=== PATIENT | male | born 1945 | race Hispanic/Latino ===

== ENCOUNTER 2017-12-06 08:13 | Emergency (ER) | payer MEDICARE, OTHER ==
[2017-12-06 08:18] VITALS: TEMP 98.3
[2017-12-06 08:28] VITALS: O2SAT 98
[2017-12-06] MEDS ORDERED: Albuterol-Ipratrop 3 mg / 0.5 (3 ml) UD INH STA ×2 (08:28→09:28)
[2017-12-06 08:46] LABS: BASO % 0.3 % (0.0-2.0); EOS # 0.3 K/uL (0.0-0.7); EOS % 2.9 % (0.0-4.0); HEMOGLOBIN 13.1 g/dL (12.0-18.0); LYMPH # 1.2 K/uL (1.0-4.3); LYMPH % 12.7 % (20.0-40.0); MEAN CELL VOLUME 90.1 fl (80.0-94.0); MEAN CORPUSCULAR HEMOGLOBIN 30.5 pg (27.0-31.0); MEAN CORPUSCULAR HGB CONC 33.9 g/dL (33.0-37.0); MEAN PLATELET VOLUME 7.2 fl (7.2-11.7); MONO # 0.8 K/uL (0.0-0.8); MONO % 8.8 % (0.0-10.0); NEUT # 6.9 K/uL (1.8-7.0); NEUT % 75.3 % (50.0-75.0); RBC 4.29 Mil/uL (4.40-5.90); RED CELL DISTRIBUTION WIDTH 12.7 % (11.5-14.5); WHITE BLOOD COUNT 9.2 K/uL (4.8-10.8)
[2017-12-06 09:16] LABS: ALB/GLOB RATIO 1.1 (1.0-2.1); ALBUMIN 3.6 g/dL (3.5-5.0); ALT/SGPT 37 U/L (21-72); AST/SGOT 27 U/L (17-59); B-TYPE NATRIURETIC PEPTIDE 211 pg/ml (0-900); BLOOD UREA NITROGEN 14 mg/dl (9-20); CALCIUM 8.9 mg/dL (8.4-10.2); GFR AFRICAN-AMERICAN > 60; GFR NON-AFRICAN AMERICAN > 60
--- NOTE | 2017-12-06 09:26 | RAD ---
HISTORY: chest pain/ r/o infiltrate COMPARISON: No prior. TECHNIQUE: Chest PA and lateral FINDINGS: LUNGS: Small right apical nodular densities. No active pulmonary disease. PLEURA: No significant pleural effusion identified. No pneumothorax apparent. CARDIOVASCULAR: Atherosclerotic aortic calcifications. Cardiomediastinal silhouette the upper limits of normal in size. OSSEOUS STRUCTURES: Under changes. VISUALIZED UPPER ABDOMEN: Normal. OTHER FINDINGS: None. IMPRESSION: No focal consolidation or pleural effusion Small right apical nodular densities for which nonemergent CT scan can be obtained for further evaluation as clinically warranted. ER notification submitted electronically.
[2017-12-06 09:28] LABS: PARTIAL THROMBOPLASTIN TIME 25.8 Seconds (25.6-37.1); PROTHROMBIN TIME 11.6 Seconds (9.8-13.1)
[2017-12-06] MEDS ORDERED: Albuterol-Ipratrop 3 mg / 0.5 (3 ml) UD ONE (10:02)
--- NOTE | 2017-12-06 11:23 | CT ---
PROCEDURE: CT Chest without contrast HISTORY: COUGH, ABNORMAL CXR COMPARISON: None. TECHNIQUE: Contiguous axial images were obtained through the chest without intravenous contrast enhancement. Sagittal and coronal reconstructions were performed. Radiation dose (DLP): mGy-cm. This CT exam was performed using one or more of the following dose reduction techniques: Automated exposure control, adjustment of the mA and/or kV according to patient size, and/or use of iterative reconstruction technique. FINDINGS: LUNGS: 4-5 mm right apical nodule. Right subpleural calcified granulomas. 5 mm left lower lobe calcified granuloma. Left lower lobe nodular consolidation. Visualized airway clear. MEDIASTINUM: Unremarkable thoracic aorta. No aneurysm. Normal sized heart. Main pulmonary artery unremarkable. No vascular congestion. Sub carinal lymph node measuring 2.2 x 1.1 cm. PLEURA: No pleural fluid. No pneumothorax. BONES: No fracture. Degenerative changes. No destructive lesion. UPPER ABDOMEN: Prior cholecystectomy. Exophytic right upper pole renal cyst. OTHER FINDINGS: None. IMPRESSION: 5 mm right apical nodule. Left lower lobe area of nodular consolidation. Subcarinal lymph node measuring 2.2 x 1.1 cm. Follow-up is advised.
[2017-12-06] MEDS ORDERED: levoFLOXacin 750 mg in D5W 150 ML BAG IVPB STA (11:26)
[2017-12-06] MEDS ORDERED: levoFLOXacin 750 mg in D5W 750 MG/150 ML BAG IVPB ONE ×2 (11:30→11:51)
[2017-12-06 12:29] LABS: SQUAMOUS EPITHIAL < 1 /hpf (0-5); URINE BILIRUBIN NEGATIVE (NEGATIVE); URINE BLOOD NEGATIVE (NEGATIVE); URINE CLARITY SLIGHTY-CLOUDY (Clear); URINE COLOR YELLOW (YELLOW); URINE GLUCOSE (UA) NEG (Normal); URINE LEUKOCYTE ESTERASE NEG Leu/uL (Negative); URINE PROTEIN NEGATIVE (NEGATIVE)
--- NOTE | 2017-12-06 12:33 | ED PDOC ---
HPI: SOB/CHF/COPD Chief Complaint (Provider): cough, shortness of breath History Per: Patient, Family (daughter) History/Exam Limitations: no limitations Onset/Duration Of Symptoms: Days (2 weeks progressive) Current Symptoms Are (Timing): Still Present Initiating Event: Upper Respiratory Illness Quality: Tightness Exacerbating Factor(s): Exertion Current Respiratory Medications: None Severity: Moderate Associated Symptoms: Chest Pain (when coughs), Productive Cough. denies: Leg/ Calf Pain, Dizziness, Anxiety, Tingling In Hands Or Face <Albert Rodriguez III - Last Filed: 12/06/17 12:30> <Francisca Ochoa - Last Filed: 12/06/17 13:24> Time Seen by Provider: 12/06/17 08:20 Chief Complaint (Nursing): Shortness Of Breath Additional Complaint(s): 72yo male presents w daughter for cough, mild SOB and malaise ongoing and worsening over 2 weeks. Thinks may have caught something from family member, kids at home sick w URI recently. Has a ? hx of chronic lung disease but no formal diagnosis. Gets care in [place] [facility] No prior cardiac history. Denies fever, orthopnea, edema or syncope. (Albert Rodriguez III) Past Medical History Reviewed: Historical Data, Nursing Documentation, Vital Signs - Medical History PMH: Anxiety, HTN, Hypercholesterolemia - Surgical History Surgical History: Cholecystectomy Other surgeries: lower extremity orthopedic procedures - Social History Current smoker - smoking cessation education provided: No (quit 40+ yrs ago) Alcohol: None <Albert Rodriguez III - Last Filed: 12/06/17 12:30> - Family History Family History: States: No Known Family Hx, Unknown Family Hx <Francisca Ochoa - Last Filed: 12/06/17 13:24> Vital Signs: Last Vital Signs Temp 98.3 F 12/06/17 08:24 Pulse 79 12/06/17 12:38 Resp 20 12/06/17 08:24 BP 154/79 H 12/06/17 08:24 Pulse Ox 98 12/06/17 12:38 - Home Medications Home Medications: Ambulatory Orders Medication Instructions Recorded Albuterol 0.083% [Albuterol 0.083% 2.5 mg IH Q4 PRN #20 neb 12/06/17 Inhal Nichelle (2.5 mg/3 ml) UD] Albuterol HFA [Ventolin HFA 90 1 - 2 puff IH Q4 PRN #1 inhaler 12/06/17 mcg/actuation (8 g)] Levofloxacin [Levaquin] 750 mg PO DAILY #7 tablet 12/06/17 Nebulizer Accessories [Airs Adult 1 each MC PRN PRN #1 each 12/06/17 Aerosol Mask] Nebulizer and Compressor [Easy Air 1 each MC Q4 PRN #1 each 12/06/17 Compressor Nebulizer] Prednisone 50 mg PO DAILY #4 tab 12/06/17 - Allergies Allergies/Adverse Reactions: Allergies Allergy/AdvReac Type Severity Reaction Status Date / Time No Known Allergies Allergy Verified 12/06/17 08:24 Review of Systems ROS Statement: Except As Marked, All Systems Reviewed And Found Negative Constitutional: Positive for: Weakness, Malaise Cardiovascular: Positive for: Chest Pain (when coughs) Respiratory: Positive for: Cough, Shortness of Breath, Pleuritic Pain, Sputum, Wheezing Gastrointestinal: Negative for: Abdominal Pain Genitourinary Male: Negative for: Dysuria Musculoskeletal: Negative for: Neck Pain Skin: Negative for: Rash, Lesions Neurological: Negative for: Weakness, Numbness <Albert Rodriguez III - Last Filed: 12/06/17 12:30> Physical Exam - Reviewed Nursing Documentation Reviewed: Yes Vital Signs Reviewed: Yes - Physical Exam Appears: Positive for: Well (speaks full sentences), Non-toxic, No Acute Distress Head Exam: Positive for: ATRAUMATIC, NORMAL INSPECTION, NORMOCEPHALIC Skin: Positive for: Normal Color, Warm, DRY Eye Exam: Positive for: EOMI, Normal appearance, PERRL ENT: Positive for: Normal ENT Inspection Neck: Positive for: Normal, Painless ROM Cardiovascular/Chest: Positive for: Regular Rate, Rhythm Respiratory: Positive for: Normal Breath Sounds, Wheezing (b/l w/ cough). Negative for: Accessory Muscle Use, Crackles, Respiratory Distress Gastrointestinal/Abdominal: Positive for: Soft. Negative for: Tenderness, Guarding Back: Positive for: Normal Inspection Extremity: Positive for: Normal ROM. Negative for: Swelling Neurologic/Psych: Positive for: Alert, Oriented, Gait (stable to bathroom). Negative for: Motor/Sensory Deficits <Albert Rodriguez III - Last Filed: 12/06/17 12:30> - Laboratory Results Result Diagrams: 12/06/17 08:35 12/06/17 08:35 - ECG ECG: Positive for: Interpreted By Me ECG Rhythm: Positive for: Normal ST Segment, Sinus Rhythm Rate: 79 O2 Sat by Pulse Oximetry: 98 Pulse Ox Interpretation: Normal - Radiology X-Ray: Read By Radiologist X-Ray Interpretation: Other (R apical nodule, Increased markings b/l on my read ) <Albert Rodriguez III - Last Filed: 12/06/17 12:30> - Laboratory Results Result Diagrams: 12/06/17 08:35 12/06/17 08:35 <Francisca Ochoa - Last Filed: 12/06/17 13:24> Medical Decision Making <Albert Rodriguez III - Last Filed: 12/06/17 12:30> <Francisca Ochoa - Last Filed: 12/06/17 13:24> Medical Decision Making: workup for cough w wheeze in setting of intermittent chronic cough (last had episode similar in september) States had CT chest about 2 yrs ago and PFTs prior to that. Has used inhaler in past. No hemoptysis. labs reviewed and unremarkable Given CXR and clinical findings, CT chest ordered r/o mass or pneumonia not evident on CXR Accession No. : [id number] Patient Name / ID : REMBERTO BLANCHARD / [id number] Exam Date : 12/06/2017 10:58:31 ( Approved ) Study Comment : Sex / Age : M / 72Y Creator : Devon Webb MD Dictator : Devon Webb MD [employer] Sigma Black Belt Engineer : Benefits Sales Consultant : Devon Webb MD Approver2 : Report Date : 12/06/2017 11:21:08 My Comment : PROCEDURE: CT Chest without contrast HISTORY: COUGH, ABNORMAL CXR COMPARISON: None. TECHNIQUE: Contiguous axial images were obtained through the chest without intravenous contrast enhancement. Sagittal and coronal reconstructions were performed. Radiation dose (DLP): mGy-cm. This CT exam was performed using one or more of the following dose reduction techniques: Automated exposure control, adjustment of the mA and/or kV according to patient size, and/or use of iterative reconstruction technique. FINDINGS: LUNGS: 4-5 mm right apical nodule. Right subpleural calcified granulomas. 5 mm left lower lobe calcified granuloma. Left lower lobe nodular consolidation. Visualized airway clear. MEDIASTINUM: Unremarkable thoracic aorta. No aneurysm. Normal sized heart. Main pulmonary artery unremarkable. No vascular congestion. Sub carinal lymph node measuring 2.2 x 1.1 cm. PLEURA: No pleural fluid. No pneumothorax. BONES: No fracture. Degenerative changes. No destructive lesion. UPPER ABDOMEN: Prior cholecystectomy. Exophytic right upper pole renal cyst. OTHER FINDINGS: None. IMPRESSION: 5 mm right apical nodule. Left lower lobe area of nodular consolidation. Subcarinal lymph node measuring 2.2 x 1.1 cm. Follow-up is advised. Levaquin initiated Daughter requested pulm Dr Lr, case discussed and will see in office early this week Rx prednisone and albuterol, Rx transmitted Recommendations for followup stressed and possible need for outpt testing r/o malignancy and assure resolution of pneumonia (Albert Rodriguez III) CXR report placed in PA review folder - FINDINGS: LUNGS: Small right apical nodular densities. No active pulmonary disease. PLEURA: No significant pleural effusion identified. No pneumothorax apparent. CARDIOVASCULAR: Atherosclerotic aortic calcifications. Cardiomediastinal silhouette the upper limits of normal in size. OSSEOUS STRUCTURES: Under changes. VISUALIZED UPPER ABDOMEN: Normal. OTHER FINDINGS: None. IMPRESSION: No focal consolidation or pleural effusion Small right apical nodular densities for which nonemergent CT scan can be obtained for further evaluation as clinically warranted. ER notification submitted electronically. PATIENT WAS NOTIFIED OF FINDING IN ED AND WAS INSTRUCTED TO FOLLOW UP. ( Francisca Ochoa) Disposition - Patient ED Disposition Is Patient to be Admitted: No Counseled Patient/Family Regarding: Studies Performed, Diagnosis, Need For Followup - Disposition Disposition: Routine/Home Disposition Time: 12:10 <Albert Rodriguez III - Last Filed: 12/06/17 12:30> <Francisca Ochoa - Last Filed: 12/06/17 13:24> - Clinical Impression Clinical Impression: Pneumonia, Pulmonary nodule - Disposition Referrals: Bear Gil MD [Staff Provider] - Marvin Crawley MD [Staff Provider] - Joni Lr MD [Staff Provider] - Condition: FAIR Additional Instructions: See pattern molder for further testing and treatment. Return to ER for any difficulty breathing, fever, weakness or any concern. Prescriptions: Albuterol 0.083% [Albuterol 0.083% Inhal Nichelle (2.5 mg/3 ml) UD] 2.5 mg IH Q4 PRN #20 neb PRN Reason: Wheezing Albuterol HFA [Ventolin HFA 90 mcg/actuation (8 g)] 1 - 2 puff IH Q4 PRN #1 inhaler PRN Reason: Shortness Of Breath Levofloxacin [Levaquin] 750 mg PO DAILY #7 tablet Nebulizer Accessories [Airs Adult Aerosol Mask] 1 each MC PRN PRN #1 each PRN Reason: Shortness Of Breath Nebulizer and Compressor [Easy Air Compressor Nebulizer] 1 each MC Q4 PRN #1 each PRN Reason: Shortness Of Breath Prednisone 50 mg PO DAILY #4 tab Instructions: Pneumonia in Adults, Pulmonary Nodule Forms: [facility] (Portuguese)
[2017-12-06 14:26] VITALS: BP 134/80; PULSE 84; RESP 18
--- NOTE | 2017-12-07 11:42 | CARD ---
APPROVED REPORT EKG Measurement Heart [id number] <Conclusion> Normal sinus rhythm Normal ECG
== END 2017-12-06 14:12 | disposition home or self-care (01) ==
LOC: H.ER 08:13
DX: J18.9 Pneumonia, unspecified organism (principal); R91.1 Solitary pulmonary nodule; E78.00 Pure hypercholesterolemia, unspecified; F41.9 Anxiety disorder, unspecified; I10 Essential (primary) hypertension; J44.0 Chronic obstructive pulmonary disease with (acute) lower respiratory infection
CPT/HCPCS: 71046; 71250; 80053; 81003; 83880; 84484; 85025; 85610; 85730; 93005; 94640; 96374; 99284; J2930